=== PATIENT | male | born 1960 | race Caucasian/White ===

== ENCOUNTER 2020-05-07 09:48 | Emergency (ER) | payer BC ==
[~2020-05-07] VITALS: Ht 182.9 cm; Wt 95.3 kg
[2020-05-07] MEDS ORDERED: NOHOMEMEDICATIONS (10:06)
[2020-05-07 10:20] LABS: ABSOLUTE NEUTROPHILS 4.8 thou/uL (1.4-8.2); HEMATOCRIT 44.5 % (42.0-52.0); HEMOGLOBIN 15.1 gm/dL (14.0-18.0); MCV 91.1 fL (80.0-100.0); MONOCYTES 8.6 % (1.0-8.0); PLATELET COUNT 245 thou/uL (150-400); POLYS 53.4 % (36.0-66.0); RBC 4.88 mil/uL (4.50-6.00)
[2020-05-07 10:32] LABS: CALCIUM 8.7 mg/dL (8.5-10.1); CREATININE 1.2 mg/dL (0.7-1.3); POTASSIUM 3.7 mmol/L (3.5-5.1)
[2020-05-07 10:34] LABS: MAGNESIUM 1.9 mg/dL (1.8-2.4)
[2020-05-07 10:37] LABS: ALBUMIN 3.4 g/dL (3.4-5.0); TOTAL BILIRUBIN 0.4 mg/dL (0.2-1.0); TOTAL PROTEIN 7.1 g/dL (6.4-8.2)
[2020-05-07 10:54] LABS: URINE BILIRUBIN NEGATIVE (Negative); URINE BLOOD NEGATIVE (Negative); URINE CLARITY SL CLOUDY; URINE COLOR YELLOW; URINE GLUCOSE-RANDOM* NEGATIVE (Negative); URINE KETONES NEGATIVE (Negative); URINE LEUKOCYTES-REFLEX 1+ (Negative); URINE NITRITE-REFLEX POSITIVE (Negative); URINE PROTEIN (DIPSTICK) NEGATIVE (Negative); URINE SPECIFIC GRAVITY >= 1.030 (1.005-1.035); URINE UROBILINOGEN 0.2 E.U./dl (0.2-1.0)
[2020-05-07 11:00] LABS: BACTERIA-REFLEX >30 Many /HPF (None Seen); CASTS None Seen /LPF (None Seen); CRYSTALS None Seen /LPF (None Seen); SQUAMOUS None Seen /LPF (0-3); URINE RBC None Seen /HPF (0-2)
[2020-05-07 11:02] LABS: AMP/METHAMP POSITIVE (Negative); BARBITURATES Negative (Negative); BENZODIAZEPINES Negative (Negative); COCAINE Negative (Negative); METHADONE Negative (Negative); OPIATES Negative (Negative); PCP Negative (Negative)
[2020-05-07] MEDS ORDERED: DOXYCYCLINE 10100 MG PO (12:01)
[2020-05-07 12:05] VITALS: BP 161/105
--- NOTE | 2020-05-07 15:51 | EKG ---
[facility] [place] [address] ELECTROCARDIOGRAM REPORT Name: ADAM ORTIZ Room #: DEP 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
== END 2020-05-07 12:05 | disposition home or self-care (01) ==
LOC: ER 09:48
PROVIDERS: Emergency Medicine
DX: N39.0 Urinary tract infection, site not specified (principal); E86.0 Dehydration; R42 Dizziness and giddiness; Z20.828 Contact with and (suspected) exposure to other viral communicable diseases; R05 Cough; F15.10 Other stimulant abuse, uncomplicated; F17.210 Nicotine dependence, cigarettes, uncomplicated; Z90.89 Acquired absence of other organs

== ENCOUNTER 2021-01-07 19:37 | Emergency (ER) | payer OTHER ==
[~2021-01-07] VITALS: Ht 182.9 cm; Wt 93.2 kg
[~2021-01-07 19:37] MED LIST: DOXYCYCLINE 10100 MG PO; NOHOMEMEDICATIONS
[2021-01-07 20:06] LABS: BASOPHILS 0.3 % (0.0-2.0); EOSINOPHILS 0.2 % (0.0-3.0); HEMATOCRIT 46.3 % (42.0-52.0); HEMOGLOBIN 15.1 gm/dL (14.0-18.0); MCH 29.5 pg (26.0-34.0); MCHC 32.7 g/dL (28.0-37.0); MCV 90.2 fL (80.0-100.0); MONOCYTES 5.8 % (1.0-8.0); PLATELET COUNT 323 thou/uL (150-400); POLYS 79.7 % (36.0-66.0); RBC 5.14 mil/uL (4.50-6.00); RDW 14.1 % (10.5-14.5); WBC 10.1 thou/uL (4.0-11.0)
[2021-01-07 20:12] LABS: ANION GAP 7 mmol/L (7-16); BUN 12 mg/dL (7-18); CALCIUM 9.5 mg/dL (8.5-10.1); CHLORIDE 102 mmol/L (98-107); CO2 27 mmol/L (21-32); GLUCOSE 128 mg/dL (74-106); SODIUM 136 mmol/L (136-145)
[2021-01-07 20:20] LABS: APTT 27.3 Seconds (24.5-32.8); PROTIME 10.2 Seconds (9.3-11.4)
[2021-01-07 20:22] LABS: ALBUMIN 3.6 g/dL (3.4-5.0); DIRECT BILIRUBIN < 0.1 mg/dL (<0.1-0.2); MAGNESIUM 2.3 mg/dL (1.8-2.4); SGOT 21 U/L (15-37); SGPT 28 U/L (16-63); TOTAL BILIRUBIN 0.4 mg/dL (0.2-1.0); TOTAL PROTEIN 7.9 g/dL (6.4-8.2); TROPONIN-I <0.06 ng/mL (<0.06)
[2021-01-07 20:23] LABS: INR < 0.9
[2021-01-07 20:43] LABS: URINE BILIRUBIN NEGATIVE (Negative); URINE BLOOD NEGATIVE (Negative); URINE CLARITY CLEAR; URINE COLOR YELLOW; URINE GLUCOSE-RANDOM* NEGATIVE (Negative); URINE KETONES NEGATIVE (Negative); URINE PROTEIN (DIPSTICK) NEGATIVE (Negative); URINE UROBILINOGEN 0.2 E.U./dl (0.2-1.0)
[2021-01-07 20:47] LABS: URINE LEUKOCYTES-REFLEX 1+ (Negative); URINE NITRITE-REFLEX POSITIVE (Negative)
[2021-01-07 20:50] LABS: CASTS None Seen /LPF (None Seen); SQUAMOUS None Seen /LPF (0-3)
[2021-01-07 20:51] LABS: AMP/METHAMP POSITIVE (Negative); BACTERIA-REFLEX >30 Many /HPF (None Seen); BARBITURATES Negative (Negative); BENZODIAZEPINES Negative (Negative); COCAINE Negative (Negative); CRYSTALS None Seen /LPF (None Seen); METHADONE Negative (Negative); OPIATES Negative (Negative); PCP Negative (Negative); URINE RBC None Seen /HPF (0-2); URINE WBC-REFLEX >25 Many /HPF (0-5)
[2021-01-07 22:08] VITALS: BP 177/127
--- NOTE | 2021-01-08 07:09 | EKG ---
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 : 1960 Requested By: Caleb Hernandez Order Number: [id number] MD: Ricky Mujica Measurements Intervals [place] Rate: 95 P: 38 VA: 165 QRS: 28 QRSD: 93 T: 261 QT: 379 QTc: 477 Interpretive Statements Sinus rhythm Probable left atrial enlargement Probable LVH with secondary repol abnrm Borderline prolonged QT interval Compared to ECG 05/07/2020 09:59:47 No significant changes Electronically Signed On 01-08-2021 7:08:53 [employer] by Ricky Mujica [email or web address] <ELECTRONICALLY SIGNED> By: Ricky Mujica MD, [facility] 01/08/21707 57 57 Ricky Mujica MD, FACC /EPI
--- NOTE | 2021-01-08 18:36 | HC ---
[facility] [place] [address] CONSULTATION Name: ADAM ORTIZ [id number] Admission: 01/07/21 Attend Phys: Discharge: 01/07/21 Date of : 62 Report #: [id number] THIS REPORT FOR: cc: GUERITA - No family physician/PCP GUERITA - No family physician/PCP Melvin Otero MD ~ DATE OF SERVICE: 01/07/2021 HISTORY OF PRESENT ILLNESS: This is a 60-year-old male patient who was seen by me for the possibility of stroke. I talked to Emergency Room physician multiple times. I talked to the patient himself, who is able to provide reasonable history. I talked to the nurses looking after this patient and subsequently I talked to Radiology Department as well as the radiologist, who read the patient's CT as well as CT angiography and they were 2 different radiologists. I got the first call in this patient from Emergency Room indicating that the patient has NIH stroke scale of 17 with dense left hemiparesis and a CT scan does not show any acute changes. I discussed with the Emergency Room physician that he should take the package out and go over inclusion and exclusion criteria and if there is no exclusion criteria and the patient understands the risks with TPA then the patient should be given TPA. As I understand from the record and talking to Emergency Room physician that was done and TPA was started. I came to see the patient and the patient had first gone for CT angiography and then I came back again to see him and then he was back. At that time, he was still getting his TPA, but has gotten most of it and I got the history from him. From all indication, it looks like he had neglect on the left side as well as weakness and he had a fall because of that, it does look like he hit his head very hard and there does not appear to be any marked external injuries to the head or the neck. The patient had dense left hemiplegia that time and that will be described later. Interesting history is that this patient was here in the middle of last year. I reviewed those records. There is a history that the patient's left arm periodically will go numb for about 30 seconds. Today, he came to the Emergency Room with profound left-sided deficits. REVIEW OF SYSTEMS: A 14-point review of system was carried out as much as it could be carried out, but because of time constraint and it was not carried out in full detail. It does not look like he had any contraindication for TPA. He is evasive about his methamphetamine, but his methamphetamine was positive the last time he came to Emergency Room as well as at this time. It looks like he was told to stop that, but does not look like he did that. PAST MEDICAL HISTORY: Positive for an episode of numbness of the left arm, which in hindsight may be significant. That history, I am getting from the record from the middle of the last year. [address] [place] [address] CONSULTATION Name: ADAM ORTIZ Adam Room #: DEP [facility] Garcia#: [id number] Admission: 01/07/21 Attend Phys: Discharge: 01/07/21 Date of : 62 Report #: [id number] SOCIAL HISTORY: Indicates he has a history of smoking as well as using methamphetamine. PHYSICAL EXAMINATION: The patient's examinations indicate he is drowsy, but he wakes up. When he wakes up, he can follow commands. His speech according to him is somewhat slurred, but he says he is right handed. He can tell me what month it is and he appeared to be competent for his disease. The positive neurological finding is that he has a dense gaze preference towards the right side. He has pretty prominent left facial palsy. He has left dense hemianopsia. He has no movement in the left upper extremity at all. He does have some movement in the left lower extremities and I think I will estimate the strength to be about 2/5. The nurses think that has improved after he was started on TPA. He has no position sense on the left side and his position sense is normal on the right side. He does have a significant neglect of his deficit on the left side. Cardiac examinations appear noncontributory. His respiratory examination is unremarkable. His blood pressure was running about 185. Because of TPA that was corrected and then it was running about 150. LABORATORY DATA: Reviewed and they were mostly unremarkable, both CBC and CMP. IMPRESSION: Clinically, it would appear that the patient had a huge right hemispheric cerebrovascular accident. Later on CT angiogram was discussed with the radiologist and it looks like he has a pretty extensive disease on both sides. It is much more prominent on the right side as compared to the left side. I talked to Emergency Room physician and I told him that the patient should be emergently transferred to a facility where neurointerventionalist should evaluate him and a neuroradiologist should evaluate his films. As I understand from him, he is going to try to send him to some place and he was in the process of doing that wherever he can get him to bed or wherever the family or the patient wants to go. With COVID situation, bed problems are there, but he is going to work to emergently transfer this patient. This patient's problem is very difficult. He has a severe right carotid disease, which need to be addressed and may be significant. He also has intracranial disease and neuroradiologist need to evaluate if this patient is an intervention candidate or not. His prognosis from the stroke is very guarded. It looks like it is a large CVA clinically. He is relatively young and these patients are predisposed to develop malignant edema. He is competent to make his decision and I have discussed the situation as much as I can with him and I have very extensively discussed with the Emergency Room physician on multiple times. He had already received most of the TPA and I did not stop that. He had amphetamine in his system, which makes the chances of complication high, but even with cocaine they have given TPAs. It will be very desirable for him to be at some more sophisticated facilities and as I mentioned, he is going to be emergently [facility] [address] [place] [address] CONSULTATION Name: ADAM ORTIZ Room #: DEP Radha#: [id number] Admission: 01/07/21 Attend Phys: Discharge: 01/07/21 Date of : 62 Report #: [id number] transferred to another facility for further workup and management, he need to be very closely watched for TPA. I told them to decrease his blood pressure to keep it within limits for TPA and that is already done because his blood pressure is 150 systolic now, the last time I saw him. Critical care time of about 35 minutes was spent taking care of this patient after I saw him and that was in addition to the patient's consult Thank you very much for this referral and if you have any question, please feel free to contact me. <ELECTRONICALLY SIGNED> By: Melvin Otero MD 01/08/21 [id number] Melvin Otero MD /nt
== END 2021-01-07 22:00 | disposition short-term general hospital (02) ==
LOC: ER 19:37
PROVIDERS: Emergency Medicine
DX: I63.9 Cerebral infarction, unspecified (principal); F17.210 Nicotine dependence, cigarettes, uncomplicated; Z79.2 Long term (current) use of antibiotics